=== PATIENT | female | born 1985 | race Two or more races ===

== ENCOUNTER 2017-04-09 14:31 | Emergency (ER) | payer OTHER ==
[~2017-04-09] VITALS: Ht 160 cm; Wt 96.6 kg
[2017-04-09 14:46] VITALS: BP 131/74
== END 2017-04-09 15:37 | disposition home or self-care (01) ==
LOC: ER 14:34
DX: J06.9 Acute upper respiratory infection, unspecified (principal)
CPT/HCPCS: 99281; A4606; Z7610; Z7502

== ENCOUNTER 2018-10-27 13:20 | Emergency (ER) | payer MEDICAID, OTHER ==
[~2018-10-27] VITALS: Ht 160 cm; Wt 97.5 kg
--- NOTE | 2018-10-27 13:27 | NUR ---
PT TO ED BED 03, WAS AT URGENT CARE C/O RLQ ABDOMINAL PAIN, +NAUSEA. X 3 DAYS. GOWNED AND PLACED ON MONITOR. AWAITING MD JONES.
[2018-10-27] MEDS ORDERED: HYDROMORPHONE INJ 2 MG/ML DISP.SYRIN IV ONE (13:30)
[2018-10-27] MEDS ORDERED: ONDANSETRON HCL/PF 4 MG/2 ML VIAL IVP ONE (13:30)
[2018-10-27] MEDS ORDERED: IV NS 0.9% 1,000 ML BAG IV ONE (13:30)
--- NOTE | 2018-10-27 13:30 | NUR ---
[employer]ICOND[employer]CTOR PROCESSING AT BEDSIDE FOR EVAL.
[2018-10-27] MEDS ORDERED: HYDROMORPHONE 1 MG/1 ML DISP.SYRIN ONE ×3 (13:32→18:17)
[2018-10-27] MEDS ORDERED: ONDANSETRON HCL/PF 4 MG/2 ML VIAL ONE (13:32)
[2018-10-27 13:44] LABS: BASOPHILS # (AUTO) 0.1 /CMM (0.0-0.2); BASOPHILS % (AUTO) 0.4 % (0.0-2.0); EOSINOPHILS % (AUTO) 0.4 % (0.0-6.0); HEMATOCRIT 35 % (33-45); HEMOGLOBIN 11.5 g/dL (11.5-14.8); LYMPHOCYTES # (AUTO) 1.4 /CMM (0.8-4.8); LYMPHOCYTES % (AUTO) 9.5 % (20.0-44.0); MEAN CORPUSCULAR HGB CONC 33 g/dl (31.0-36.0); MEAN CORPUSCULAR VOLUME 83 fL (82-100); MONOCYTES # (AUTO) 1.2 /CMM (0.1-1.30); MONOCYTES % (AUTO) 7.8 % (2.0-12.0); NEUTROPHILS # (AUTO) 12.1 /CMM (1.8-8.9); NEUTROPHILS % (AUTO) 81.9 % (43.0-81.0); PLATELET COUNT (AUTO) 382 /CMM (150-450); RED BLOOD CELL COUNT(AUTO) 4.21 MIL/uL (4.0-5.2); WHITE BLOOD COUNT (AUTO) 14.8 K/uL (4.3-11.0)
[2018-10-27 13:51] LABS: CALCIUM, SERUM 8.5 mg/dL (8.5-10.1); POTASSIUM 4.3 mmol/L (3.5-5.1)
[2018-10-27 13:57] LABS: ALBUMIN 3.2 g/dL (3.4-5.0); BILIRUBIN,DIRECT 0.1 mg/dL (0.0-0.2); BILIRUBIN,TOTAL 0.3 mg/dL (0.2-1.0); TOTAL PROTEIN, SERUM 7.6 g/dL (6.4-8.2)
--- NOTE | 2018-10-27 14:02 | NUR ---
REPORT TO LORENA NEWSOME FOR MARILYN.
[2018-10-27] MEDS ORDERED: IV NS 0.9% 250 ML IV ONE (14:20)
[2018-10-27] MEDS ORDERED: IOHEXOL-300 100 ML VIAL IV ONE (14:20)
[2018-10-27] MEDS ORDERED: CT SWABBABLE VALVE TRANS SET 1 EA INFUS.SET MC ONE (14:20)
[2018-10-27 15:02] LABS: APPEARANCE,URINE Slightly Cloudy (CLEAR); BILIRUBIN,URINE Negative (NEGATIVE); BLOOD, URINE Trace-lysed Ery/uL (NEGATIVE); COLOR,URINE Yellow (YELLOW); KETONES,URINE Negative (NEGATIVE); LEUKOCYTE ESTERASE ,URINE Large (NEGATIVE); NITRITE, URINE Negative (NEGATIVE); PROTEIN,URINE 30 mg/dl (NEGATIVE); UGLUCOSE Negative (NEGATIVE); UROBILINOGEN,URINE 0.2 EU/dL (0.2)
[2018-10-27 15:10] LABS: BACTERIA,URINE Moderate /HPF (None Seen); SQUAMOUS EPITHELIAL CELL,UR Few /HPF (None Seen); WBC,URINE 20-50 /HPF (0-3)
[2018-10-27] MEDS ORDERED: HYDROMORPHONE 1 MG/1 ML DISP.SYRIN IV ONE ×2 (16:00→18:30)
--- NOTE | 2018-10-27 16:06 | NUR ---
PT BACK FROM CT. MEDICATED FOR PAIN ORDERED, PT KENDRICK WELL.
[2018-10-27] MEDS ORDERED: CEFOTETAN DISODIUM IV ONE (16:30)
[2018-10-27] MEDS ORDERED: D5W IV ONE (16:30)
[2018-10-27] MEDS ORDERED: DOXYCYCLINE HYCLATE (100 MG) 100 MG TABLET PO ONE (16:30)
[2018-10-27] MEDS ORDERED: DOXYCYCLINE HYCLATE (100 MG) 100 MG TABLET ONE (16:45)
--- NOTE | 2018-10-27 16:58 | NUR ---
PT ASLEEP BUT EASILY AWAKEN BY VERBAL STIMULI. STS ABD PAIN 6/10, DENIES CP, SOB, DIZZINESS, N/V AT THIS TIME. WILL CONT TO MONITOR.
[2018-10-27] MEDS ORDERED: CLINDAMYCIN IV RTU IN D5W 900 MG/50 ML PIGGYBACK IV ONE (17:30)
[2018-10-27] MEDS ORDERED: IV D5/0.45 NACL 1,000 ML IV ONE (17:30)
[2018-10-27] MEDS ORDERED: GENTAMICIN 140 MG in IV D5W 100 ML IV ONE (17:30)
[2018-10-27] MEDS ORDERED: ACETAMINOPHEN ES 500 MG TABLET ONE (17:56)
[2018-10-27] MEDS ORDERED: ACETAMINOPHEN ES 500 MG TABLET PO ONE (18:00)
--- NOTE | 2018-10-27 18:00 | NUR ---
[place]O JOHNSONS TO [facility] ER ETA [phone] TRIP [id number]
--- NOTE | 2018-10-27 18:14 | NUR ---
PT ACCEPTED TO [facility] BY DR. DELAROSA AND DR. DOSS
--- NOTE | 2018-10-27 18:24 | NUR ---
MEDICATED FOR PAIN PER PA'S ORDER, PT KENDRICK WELL.
[2018-10-27 19:57] VITALS: BP 128/42
--- NOTE | 2018-10-27 20:00 | NUR ---
PT WAS PICKED UP VIA GURNEY BY [facility] IN STABLE CONDISION
--- NOTE | 2018-10-27 20:20 | NUR ---
PT EN ROUTE TO [facility] ED VIA BLS.
--- NOTE | 2018-10-27 21:08 | NUR ---
REPORT GIVEN TO JEROD GONG FOR MARILYN
== END 2018-10-27 20:29 | disposition short-term general hospital (02) ==
LOC: ER 13:24
DX: N73.8 Other specified female pelvic inflammatory diseases (principal); R00.0 Tachycardia, unspecified
CPT/HCPCS: 36415; 74177; 76856; 80048; 80076; 81001; 83605; 83690; 84703; 85025; 85730; 87040 ×2; 87077; 87086; 87186; 87491; 87591; 96365; 96368; 96375; 96376; 99285; J1170 ×3; J1580; J2405; J3490 ×2; J7030; J7050; J7060 ×2; Q9967; 81000-TC

== ENCOUNTER 2019-10-09 13:16 | Emergency (ER) | payer MEDICAID ==
[~2019-10-09] VITALS: Ht 162.6 cm; Wt 88.5 kg
--- NOTE | 2019-10-09 14:24 | NUR ---
DR NELSON AT BEDSIDE
[2019-10-09] MEDS ORDERED: MORPHINE SULFATE INJ 4 MG/ML DISP.SYRIN ONE ×2 (14:47→18:06)
[2019-10-09 14:50] LABS: BASOPHILS % (AUTO) 0.4 % (0.0-2.0); EOSINOPHILS % (AUTO) 0.9 % (0.0-6.0); HEMATOCRIT 35 % (33-45); HEMOGLOBIN 11.2 g/dL (11.5-14.8); LYMPHOCYTES # (AUTO) 2.5 /CMM (0.8-4.8); LYMPHOCYTES % (AUTO) 26.2 % (20.0-44.0); MEAN CORPUSCULAR HGB CONC 32 g/dl (31.0-36.0); MEAN CORPUSCULAR VOLUME 75 fL (82-100); MONOCYTES # (AUTO) 0.6 /CMM (0.1-1.30); NEUTROPHILS # (AUTO) 6.4 /CMM (1.8-8.9); NEUTROPHILS % (AUTO) 66.5 % (43.0-81.0); PLATELET COUNT (AUTO) 539 /CMM (150-450); WHITE BLOOD COUNT (AUTO) 9.7 K/uL (4.3-11.0)
[2019-10-09] MEDS: MORPHINE SULFATE INJ 2 MG/ML DISP.SYRIN IV ONE (14:50)
[2019-10-09 14:56] LABS: CALCIUM, SERUM 9.6 mg/dL (8.5-10.1); CREATININE 0.8 mg/dL (0.6-1.3); POTASSIUM 4.7 mmol/L (3.5-5.1)
[2019-10-09] MEDS ORDERED: IOHEXOL-300 100 ML VIAL IV ONE (14:57)
[2019-10-09] MEDS ORDERED: IV NS 0.9% 250 ML IV ONE (14:57)
[2019-10-09] MEDS ORDERED: CT SWABBABLE VALVE TRANS SET 1 EA INFUS.SET MC ONE (14:57)
--- NOTE | 2019-10-09 15:00 | NUR ---
[facility] FORM SIGNED, LMP 10/03/2019
--- NOTE | 2019-10-09 15:02 | NUR ---
IRAJ FULLER WHEELED PATIENT VIA [facility] FOR CT SCAN
--- NOTE | 2019-10-09 16:10 | NUR ---
FAXED CLINICALS TO [facility].
--- NOTE | 2019-10-09 16:21 | NUR ---
FAXED CLINICALS TO [place].
--- NOTE | 2019-10-09 16:30 | NUR ---
[facility] CALLED BACK. PT WOULD NEED OPTHAMOLOGY AND THEY DO NOT HAVE OPTHAMOLOGY [facility].
--- NOTE | 2019-10-09 16:32 | NUR ---
FAXED CLINICALS TO [facility]
--- NOTE | 2019-10-09 17:08 | NUR ---
CALLED [facility]. PER TRAUMA SURGEON, DOES NOT MEET TRAUMA CRITERIA. ADVISED US TO [facility] PT.
--- NOTE | 2019-10-09 17:28 | NUR ---
PER [facility] PT HAS BEEN ACCEPTED AT [facility]. DR. NAZIA ARIAS IS THE TRAUMA SUGEON/ DR. MCKEON ER DOCTOR. [facility] ID NUMBER [id number]. NUMBER FOR REPORT [phone].
--- NOTE | 2019-10-09 17:37 | NUR ---
CHRISTINA PRESCOTT (MOTHER) [phone]
--- NOTE | 2019-10-09 17:41 | NUR ---
CALLED [facility] FOR TRANSPORT TO [facility]. ETA 1 HOUR TO 1 HOUR 45 MINUTES.
--- NOTE | 2019-10-09 17:54 | NUR ---
REPORT GIVEN TO AMBER NEWSOME OF [facility] ER DEPT
--- NOTE | 2019-10-09 18:04 | NUR ---
PATIENT C/O HEADACHE AND GENERALIZED BODY ACHES, MADE MD AWARE, RECEIVED VERBAL ORDER OF MORPHINE 4MG IVP. CARRIED OUT
[2019-10-09] MEDS: MORPHINE SULFATE INJ 10 MG/ML DISP.SYRIN IV ONE (18:07)
[2019-10-09 19:04] VITALS: BP 138/94
--- NOTE | 2019-10-09 19:06 | NUR ---
Patient picked up by [facility] ALS Unit [facility] in stable condition. patient will be transferred to [facility]. Clinicals and CD copy of image handed to EMS.
== END 2019-10-09 19:11 | disposition short-term general hospital (02) ==
LOC: ER 13:28
DX: S02.122A Fracture of orbital roof, left side, initial encounter for closed fracture (principal); S05.32XA Ocular laceration without prolapse or loss of intraocular tissue, left eye, initial encounter; V49.49XA Driver injured in collision with other motor vehicles in traffic accident, initial encounter; Y93.89 Activity, other specified; Y92.488 Other paved roadways as the place of occurrence of the external cause; Y99.8 Other external cause status
CPT/HCPCS: 36415; 70481; 80048; 85025; 96374; 96376; 99285; J2270 ×2; J7050; Q9967